=== PATIENT | male | born 1990 | race Caucasian/White ===

== ENCOUNTER 2020-11-15 00:09 | Emergency (ER) | payer OTHER ==
[~2020-11-15] VITALS: Ht 175.3 cm; Wt 82.6 kg
[2020-11-15 00:19] VITALS: BP 143/75; Ht 175.3 cm; Wt 82.6 kg
[2020-11-15] MEDS ORDERED: EC NAPROSYN500 MG PO (01:23)
[2020-11-15] MEDS ORDERED: ACETAMINOPHEN500 M5 PO (01:23)
== END 2020-11-15 01:35 | disposition home or self-care (01) ==
LOC: ED 00:09
DX: S92.311A Displaced fracture of first metatarsal bone, right foot, initial encounter for closed fracture (principal); Z88.0 Allergy status to penicillin; W22.8XXA Striking against or struck by other objects, initial encounter; Y93.89 Activity, other specified; Y92.89 Other specified places as the place of occurrence of the external cause; Y99.8 Other external cause status